=== PATIENT | female | born 1990 | race Caucasian/White ===

== ENCOUNTER 2019-05-24 11:32 | Observation (INO) ==
[2019-05-24 14:04] LABS: Bilirubin,Urine Negative (Negative); Blood,Urine Negative (Negative); Clarity,Urine Turbid (Clear); Color,Urine Yellow (Yellow); Glucose,Urine (UA) Normal (Normal); Ketones,Urine Negative (Negative); Leukocyte Esterase,Urine Small (Negative); Nitrite,Urine Negative (Negative); PH,Urine 7.5 pH Units (5.0-8.0); Protein,Urine 30 mg/dL (Neg-Trace); Specific Gravity,Urine 1.026 (1.010-1.025); Urobilinogen,Urine Normal (Normal)
[2019-05-24 14:10] LABS: Bacteria,Urine Many per hpf (None-Few); Hyaline Casts,Urine Few per lpf (None-Few); Squamous Epithelial Cell,Urine Many per lpf (None-Few); WBC,Urine 30-50 per hpf (0-3)
[2019-05-24 14:18] LABS: Amphetamine Screen,Urine Negative ng/mL (Cutoff=1000); Barbiturate Screen,Urine Negative ng/mL (Cutoff=200); Benzodiazepines Screen,Urine Negative ng/mL (Cutoff=200); Cannabinoid Screen,Urine Negative ng/mL (Cutoff = 50); Cocaine Screen,Urine Negative ng/mL (Cutoff= 300); Opiate Screen,Urine Negative ng/mL (Cutoff=300); Phencyclidine Screen,Urine Negative ng/mL (Cutoff=25)
[2019-05-24 14:53] LABS: Amorphous Sediment,Urine Present (Few)
== END 2019-05-24 15:25 | disposition home or self-care (01) ==
LOC: 1NENULAB
PROVIDERS: ADMIT Registered Nurse; ATTEND Registered Nurse

== ENCOUNTER 2019-06-08 16:58 | Observation (INO) ==
[2019-06-08 18:52] LABS: Amphetamine Screen,Urine Negative ng/mL (Cutoff=1000); Barbiturate Screen,Urine Negative ng/mL (Cutoff=200); Benzodiazepines Screen,Urine Negative ng/mL (Cutoff=200); Cannabinoid Screen,Urine Negative ng/mL (Cutoff = 50); Cocaine Screen,Urine Negative ng/mL (Cutoff= 300); Opiate Screen,Urine Negative ng/mL (Cutoff=300); Phencyclidine Screen,Urine Negative ng/mL (Cutoff=25)
== END 2019-06-08 17:51 | disposition home or self-care (01) ==
LOC: 1NENULAB
PROVIDERS: ADMIT Advanced Practice Midwife; ATTEND Advanced Practice Midwife

== ENCOUNTER 2019-06-10 17:59 | Observation (INO) ==
[2019-06-10] MEDS ORDERED: Acetaminophen 325 MG TABLET PO ONE (18:37)
[2019-06-10] MEDS ORDERED: Ondansetron ODT 4 MG TAB.RAPDIS SL STA (18:37)
[2019-06-10 18:43] LABS: Amphetamine Screen,Urine Negative ng/mL (Cutoff=1000); Barbiturate Screen,Urine Negative ng/mL (Cutoff=200); Benzodiazepines Screen,Urine Negative ng/mL (Cutoff=200); Cannabinoid Screen,Urine Negative ng/mL (Cutoff = 50); Cocaine Screen,Urine Negative ng/mL (Cutoff= 300); Opiate Screen,Urine Negative ng/mL (Cutoff=300); Phencyclidine Screen,Urine Negative ng/mL (Cutoff=25)
[2019-06-10] MEDS ORDERED: Metoclopramide 10 MG/2 ML VIAL IVP ONE (19:45)
== END 2019-06-10 21:19 | disposition home or self-care (01) ==
LOC: 1NENULAB
PROVIDERS: ADMIT Advanced Practice Midwife; ATTEND Advanced Practice Midwife

== ENCOUNTER 2019-06-16 08:00 | Inpatient (IN) ==
[2019-06-16] MEDS ORDERED: Famotidine 20 MG/2 ML VIAL IVP PRN (08:45)
[2019-06-16] MEDS ORDERED: Naloxone 0.4 MG/ML INJ IVP PRN (08:45)
[2019-06-16] MEDS ORDERED: Ondansetron 4 MG/2 ML VIAL IVP PRN (08:45)
[2019-06-16] MEDS ORDERED: *HR* Nalbuphine 10 MG/ML AMPUL IVP PRN (08:45)
[2019-06-16] MEDS ORDERED: Metoclopramide 10 MG/2 ML VIAL IVP PRN (08:45)
[2019-06-16] MEDS ORDERED: Lidocaine 1% 20 ML MDV ID PRN (08:45)
[2019-06-16] MEDS ORDERED: miSOPROStoL 25 MCG TABLET PO PRN (08:48)
[2019-06-16 09:06] LABS: Basophils % 0.2 %; Eosinophils % 0.3 %; Hematocrit 36.1 % (35.3-44.9); Immature Granulocytes % 0.7 % (0-4); Lymphocytes # 1.3 K/mcL (0.6-4.6); Lymphocytes % 13.5 %; Mean Corpuscular HGB Conc 33.2 g/dL (31.6-35.5); Mean Corpuscular Hemoglobin 30.8 pg (28.0-33.3); Mean Corpuscular Volume 92.8 fL (83.0-100.0); Mean Platelet Volume 12.1 fL (9.4-12.4); Monocytes # 0.5 K/mcL (0.0-1.3); Monocytes % 5.2 %; Neutrophils # 7.5 K/mcL (1.6-8.9); Platelet Count 173 K/mcL (140-400); Red Blood Count 3.89 M/mcL (3.82-4.97); Red Cell Distribution Width 13.9 % (11.5-14.5); Segmented Neutrophils % 80.1 %; White Blood Count 9.4 K/mcL (4.3-11.1)
[2019-06-16] MEDS ORDERED: Oxytocin 20 units/ LR 1000 mL 20 UNIT/1,000 ML BAG IVC SCH (14:15)
[2019-06-16 15:52] LABS: Amphetamine Screen,Urine Negative ng/mL (Cutoff=1000); Barbiturate Screen,Urine Positive ng/mL (Cutoff=200); Benzodiazepines Screen,Urine Negative ng/mL (Cutoff=200); Cannabinoid Screen,Urine Negative ng/mL (Cutoff = 50); Cocaine Screen,Urine Negative ng/mL (Cutoff= 300); Opiate Screen,Urine Negative ng/mL (Cutoff=300); Phencyclidine Screen,Urine Negative ng/mL (Cutoff=25)
[2019-06-16] MEDS: Ringers Solution, Lactated 1,000 ML IVC SCH (22:37)
[2019-06-17] MEDS: Epidural Premix (fent/bupiv) 110 ML EP SCH ×2 (02:24→07:51)
[2019-06-17] MEDS ORDERED: *HR* Ropivacaine/PF 0.5% 20 ML VIAL ONE (07:37)
[2019-06-17] MEDS ORDERED: Ropivacaine/PF 0.2% 20 ML VIAL ONE (07:37)
[2019-06-17] MEDS: Ringers Solution, Lactated 1,000 ML IVC SCH (09:02)
[2019-06-17] MEDS ORDERED: Measles/Mumps/Rubella Vacc 0.5 ML VIAL SQ PRN (14:53)
[2019-06-17] MEDS ORDERED: Oxytocin 20 units/ LR 1000 mL 20 UNIT/1,000 ML BAG IVC SCH (14:53)
[2019-06-17] MEDS: Ibuprofen 600 MG TABLET PO SCH (16:26)
[2019-06-17] MEDS ORDERED: Benzocaine/Menthol 56 GM AEROSOL SPRAY TP PRN (19:56)
[2019-06-18] MEDS: Acetaminophen 325 MG TABLET PO SCH ×3 (05:06→11:27)
[2019-06-18] MEDS: Ibuprofen 600 MG TABLET PO SCH ×3 (05:06→11:09)
[2019-06-18 06:59] LABS: Basophils % 0.3 %; Eosinophils # 0.1 K/mcL (0.0-0.6); Eosinophils % 0.9 %; Hematocrit 29.1 % (35.3-44.9); Immature Granulocytes % 0.6 % (0-4); Lymphocytes # 1.6 K/mcL (0.6-4.6); Lymphocytes % 13.9 %; Mean Corpuscular HGB Conc 32.3 g/dL (31.6-35.5); Mean Corpuscular Hemoglobin 30.6 pg (28.0-33.3); Mean Corpuscular Volume 94.8 fL (83.0-100.0); Monocytes # 0.8 K/mcL (0.0-1.3); Monocytes % 7.2 %; Neutrophils # 8.8 K/mcL (1.6-8.9); Platelet Count 161 K/mcL (140-400); Red Blood Count 3.07 M/mcL (3.82-4.97); Red Cell Distribution Width 14.1 % (11.5-14.5); Segmented Neutrophils % 77.1 %; White Blood Count 11.4 K/mcL (4.3-11.1)
[2019-06-18 07:00] LABS: Hemoglobin 9.4 g/dL (11.5-15.4)
[2019-06-18] MEDS ORDERED: Methylergonovine 0.2 MG/ML AMPUL IM ONE (07:52)
[2019-06-18] MEDS ORDERED: Prenatal Vit/FA 1 EACH TABLET PO SCH (09:00)
[2019-06-18 11:30] VITALS: BP 125/81
== END 2019-06-18 15:00 | disposition home or self-care (01) | DRG 560 ==
LOC: 1NENULAB 08:22 → 1NENUOBS 06-17 15:58
PROVIDERS: ADMIT Obstetrics & Gynecology; ATTEND Obstetrics & Gynecology

== ENCOUNTER 2021-05-12 08:07 | Inpatient (IN) ==
[2021-05-12] MEDS ORDERED: Famotidine 20 MG/2 ML VIAL IVP PRN (08:19)
[2021-05-12] MEDS ORDERED: *HR* Nalbuphine 10 MG/ML AMPUL IV PRN (08:19)
[2021-05-12] MEDS ORDERED: Azithromycin 500 MG in 0.9 % Sodium Chloride 250 ML IVPB PRN (08:19)
[2021-05-12] MEDS ORDERED: Naloxone 0.4 MG/ML INJ IVP PRN ×2 (08:19→10:19)
[2021-05-12] MEDS ORDERED: Lidocaine 1% 20 ML MDV INFILT PRN (08:19)
[2021-05-12] MEDS ORDERED: Metoclopramide 10 MG/2 ML VIAL IVP PRN (08:19)
[2021-05-12] MEDS ORDERED: Ondansetron 4 MG/2 ML VIAL IVP PRN ×2 (08:19→10:19)
[2021-05-12] MEDS ORDERED: Oxytocin 20 units/ LR 1000 mL 20 UNIT/1,000 ML BAG IVC SCH (08:30)
[2021-05-12] MEDS ORDERED: Ringers Solution, Lactated 1,000 ML IVC SCH (08:30)
[2021-05-12 09:17] LABS: Basophils % 0.4 %; Eosinophils % 0.5 %; Hematocrit 36.3 % (35.3-44.9); Immature Granulocytes % 0.7 % (0-4); Lymphocytes # 1.6 K/mcL (0.6-4.6); Lymphocytes % 19.4 %; Mean Corpuscular HGB Conc 33.1 g/dL (31.6-35.5); Mean Corpuscular Hemoglobin 30.4 pg (28.0-33.3); Mean Corpuscular Volume 91.9 fL (83.0-100.0); Mean Platelet Volume 12.5 fL (9.4-12.4); Monocytes # 0.7 K/mcL (0.0-1.3); Monocytes % 8.1 %; Neutrophils # 5.8 K/mcL (1.6-8.9); Platelet Count 179 K/mcL (140-400); Red Blood Count 3.95 M/mcL (3.82-4.97); Red Cell Distribution Width 13.5 % (11.5-14.5); Segmented Neutrophils % 70.9 %; White Blood Count 8.1 K/mcL (4.3-11.1)
[2021-05-12 09:54] LABS: Influenza A PCR Negative (Negative); Influenza B PCR Negative (Negative); Resp. Syncytial Virus PCR Negative (Negative)
[2021-05-12] MEDS ORDERED: *HR* Labetalol 20 MG/4 ML SYRINGE IVP ONE ×2 (09:59→10:03)
[2021-05-12] MEDS ORDERED: *HR* FentaNYL (PF) 100 MCG/2 ML VIAL EP ONE (10:19)
[2021-05-12] MEDS ORDERED: EPHEDrine 50 MG/ML VIAL IVP PRN (10:19)
[2021-05-12] MEDS ORDERED: Ropivacaine/PF 0.2% 20 ML VIAL EP ONE (10:19)
[2021-05-12] MEDS ORDERED: Epidural Premix (fent/bupiv) 110 ML EP SCH (10:30)
[2021-05-12 10:38] LABS: Amphetamine Screen,Urine Negative ng/mL (Cutoff=1000); Barbiturate Screen,Urine Negative ng/mL (Cutoff=200); Benzodiazepines Screen,Urine Negative ng/mL (Cutoff=200); Cannabinoid Screen,Urine Negative ng/mL (Cutoff = 50); Cocaine Screen,Urine Negative ng/mL (Cutoff= 300); Creatinine,Urine 230 mg/dL; Opiate Screen,Urine Negative ng/mL (Cutoff=300); Phencyclidine Screen,Urine Negative ng/mL (Cutoff=25); Protein/Creatinine Ratio,Urine 0.22 mg/mg (0.00-0.20)
[2021-05-12 10:52] LABS: SARS-CoV-2 by PCR (In House) Negative (Negative)
[2021-05-12 11:11] LABS: Alanine Aminotransferase 8 Units/L (7-52); Aspartate Amino Transferase 11 Units/L (13-39); BUN/Creatinine Ratio 13 (6-26); Blood Urea Nitrogen 7 mg/dL (6-20); Glucose 105 mg/dL (70-105); Lactate Dehydrogenase 132 Units/L (140-271); eGFR For African Americans > 60 (> 60); eGFR For Non-African Americans > 60 (> 60)
[2021-05-12] MEDS ORDERED: Ropivacaine/PF 0.2% 20 ML VIAL ONE (17:16)
[2021-05-13] MEDS ORDERED: Ondansetron ODT 4 MG TAB.RAPDIS SL PRN (01:28)
[2021-05-13] MEDS ORDERED: Oxytocin 20 units/ LR 1000 mL 20 UNIT/1,000 ML BAG IVC SCH (01:28)
[2021-05-13] MEDS ORDERED: Benzocaine/Menthol 56 GM AEROSOL SPRAY TP PRN (01:28)
[2021-05-13] MEDS ORDERED: Oxytocin 20 units/ LR 1000 mL 20 UNIT/1,000 ML BAG IVC ONE (01:28)
[2021-05-13] MEDS ORDERED: Lanolin 7 G OINT...G. TP PRN ×2 (01:28→02:04)
[2021-05-13] MEDS ORDERED: Measles/Mumps/Rubella Vacc 0.5 ML VIAL SQ PRN (01:28)
[2021-05-13] MEDS: Acetaminophen 325 MG TABLET PO SCH ×4 (06:58→19:55)
[2021-05-13] MEDS: Ibuprofen 600 MG TABLET PO SCH ×4 (06:59→23:09)
[2021-05-13] MEDS: Prenatal Vit/FA 1 EACH TABLET PO SCH (07:40)
[2021-05-13 20:30] VITALS: TEMP 97.5
[2021-05-14] MEDS: Acetaminophen 325 MG TABLET PO SCH (03:26)
[2021-05-14] MEDS: Ibuprofen 600 MG TABLET PO SCH (07:30)
[2021-05-14] MEDS: Prenatal Vit/FA 1 EACH TABLET PO SCH (07:30)
[2021-05-14 07:55] VITALS: BP 116/75; PULSE 73; O2SAT 98
== END 2021-05-14 11:39 | disposition home or self-care (01) | DRG 560 ==
LOC: 1NENULAB 08:07 → 1NENUOBS 05-13 02:11
PROVIDERS: ADMIT Obstetrics & Gynecology; ATTEND Obstetrics & Gynecology